=== PATIENT | male | born 1990 | race Caucasian/White ===

== ENCOUNTER 2016-12-17 00:58 | Observation (INO) | payer OTHER ==
[2016-12-17] MEDS: LORazepam 2 MG/ML MDV IVPUSH PRN ×2 (01:15→02:14)
[2016-12-17] MEDS ORDERED: LORazepam 2 MG/ML MDV ONE ×5 (01:15→05:24)
--- NOTE | 2016-12-17 01:15 | EDM.PDOC ---
ED HPI GENERAL MEDICAL PROBLEM - General Chief Complaint: Drug or Alcohol Abuse Stated Complaint: SUICIDAL Time Seen by Provider: 12/17/16 01:11 - History of Present Illness INITIAL COMMENTS - FREE TEXT/NARRATIVE: He has been drinking alcohol today. He denies illegal drug use. Police brought him here because he said something about killing himself. There was no suspected trauma He was noted to be walking about outside today. - Related Data Allergies Allergy/AdvReac Type Severity Reaction Status Date / Time No Known Allergies Allergy Verified 12/17/16 01:08 Home Meds: Home Meds . 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 ED ROS GENERAL - Review of Systems Review Of Systems: See Below - Physical Exam Exam: See Below Text/Narrative:: some agitation; intermittently cooperative; periodic cursing and restlessness. head atraumatic neck supple lungs CTA abdomen non tender no ankle edema periodic yelling and cursing. General Appearance: Alert Course - Vital Signs Last Recorded V/S: Last Vital Signs Temp 98.6 F 12/17/16 12:00 Pulse 101 H 12/17/16 02:27 Resp 16 12/17/16 12:00 BP 118/74 12/17/16 12:00 Pulse Ox 97 12/17/16 12:00 - Orders/Labs/Meds Labs: Laboratory Tests 12/17/16 12/17/16 12/17/16 Range/Units 01:10 01:10 01:25 WBC 7.30 (4.0-11.0) K/uL RBC 4.68 (4.50-5.90) M/uL Hgb 14.9 (13.0-17.0) g/dL Hct 43.3 (38.0-50.0) % MCV 92.5 (80.0-98.0) fL MCH 31.8 (27.0-32.0) pg MCHC 34.4 (31.0-37.0) g/dL RDW Std Deviation 40.9 (28.0-62.0) fl RDW Coeff of Sheree 12 (11.0-15.0) % Plt Count 274 (150-400) K/uL MPV 10.00 (7.40-12.00) fL Neut % (Auto) 58.6 (48.0-80.0) % Lymph % (Auto) 33.2 (16.0-40.0) % Nelson % (Auto) 6.8 (0.0-15.0) % Eos % (Auto) 1.0 (0.0-7.0) % Baso % (Auto) 0.4 (0.0-1.5) % Neut # (Auto) 4.3 (1.4-5.7) K/uL Lymph # (Auto) 2.4 (0.6-2.4) K/uL Nelson # (Auto) 0.5 (0.0-0.8) K/uL Eos # (Auto) 0.1 (0.0-0.7) K/uL Baso # (Auto) 0.0 (0.0-0.1) K/uL Sodium 145 (136-146) mmol/L Potassium 3.1 L (3.5-5.1) mmol/L Chloride 112 H (98-110) mmol/L Carbon Dioxide 13 L (21-31) mmol/L BUN 9 (6.0-23.0) mg/dL Creatinine 1.2 (0.6-1.5) mg/dL Est Cr Clr Drug Dosing TNP Estimated GFR (MDRD) > 60.0 ml/min Glucose 132 H (60-110) mg/dL Calcium 9.8 (8.8-10.8) mg/dL Magnesium 2.0 (1.5-2.3) mEq/L Total Bilirubin 0.3 (0.1-1.5) mg/dL AST 25 (5-40) IU/L ALT 22 (8-54) IU/L Alkaline Phosphatase 75 (40-150) Total Protein 7.8 (6.0-8.0) g/dL Albumin 4.6 (3.5-5.0) g/dL Globulin 3.2 (2.0-3.5) g/dL Albumin/Globulin Ratio 1.4 (1.3-2.8) TSH 3rd Generation 1.52 (0.47-5.0) uIU/mL Urine Opiates Screen NEGATIVE (NEGATIVE) Ur Oxycodone Screen NEGATIVE (NEGATIVE) Urine Methadone Screen NEGATIVE (NEGATIVE) Ur Barbiturates Screen NEGATIVE (NEGATIVE) Ur Phencyclidine Scrn NEGATIVE (NEGATIVE) Ur Amphetamine Screen NEGATIVE (NEGATIVE) U Methamphetamines Scrn NEGATIVE (NEGATIVE) U Benzodiazepines Scrn NEGATIVE (NEGATIVE) U Cocaine Metab Screen NEGATIVE (NEGATIVE) U Marijuana (THC) Screen NEGATIVE (NEGATIVE) Ethyl Alcohol 280.3 mg/dL Meds: Medications Discontinued Medications Generic Name Dose Route Start Last Admin Trade Name Freq PRN Reason Stop Dose Admin Haloperidol Lactate 5 mg 12/17/16 01:42 12/17/16 01:50 Haldol IM 12/17/16 01:43 5 mg ONETIME ONE Administration Multivitamins/Minerals 10 ml/ 1,011.2 mls @ 250 mls/hr 12/17/16 01:16 01:29 Thiamine HCl 100 mg/ Folic IV 12/17/16 05:18 250 mls/hr Acid 1 mg/ Sodium Chloride ONETIME ONE Administration Potassium Chloride/Sodium Chloride 1,000 mls @ 125 mls/hr 12/17/16 09:30 07:15 Normal Saline With 20 Meq Kcl IV 125 mls/hr ASDIRECTED ROSALINE Administration Lorazepam Confirm 12/17/16 01:15 12/17/16 01:21 Ativan Administered 12/17/16 01:16 Not Given Dose 2 mg .ROUTE .STK-MED ONE Lorazepam 1 mg 12/17/16 01:17 12/17/16 02:14 Ativan IVPUSH 1 mg Q1H PRN Administration Anxiety Lorazepam Confirm 12/17/16 02:10 12/17/16 02:15 Ativan Administered 12/17/16 02:11 Not Given Dose 2 mg .ROUTE .STK-MED ONE Lorazepam Confirm 12/17/16 03:21 12/17/16 11:24 Ativan Administered 12/17/16 03:22 Not Given Dose 2 mg .ROUTE .STK-MED ONE Lorazepam Confirm 12/17/16 04:44 12/17/16 11:25 Ativan Administered 12/17/16 04:45 Not Given Dose 2 mg .ROUTE .STK-MED ONE Lorazepam Confirm 12/17/16 05:24 12/17/16 11:25 Ativan Administered 12/17/16 05:25 Not Given Dose 2 mg .ROUTE .STK-MED ONE Lorazepam 1 mg 12/17/16 09:56 Ativan IVPUSH Q1H PRN Agitation Ondansetron HCl 4 mg 12/17/16 09:57 Zofran IVPUSH Q4H PRN Nausea/Vomiting Pantoprazole Sodium Confirm 12/17/16 03:48 12/17/16 11:25 Protonix Iv Administered 12/17/16 03:49 Not Given Dose 40 mg .ROUTE .STK-MED ONE Departure - Departure Time of Disposition: 07:00 Disposition: Admitted As Inpatient 66 Condition: Poor Clinical Impression: Alcohol intoxication - Discharge Information
[2016-12-17] MEDS ORDERED: MVI, Adult with Vitamin K 10 ML, Thiamine 100 MG, Folic Acid 1 MG in Sodium Chloride 0.... IV ONE ×4 (01:16)
[2016-12-17] MEDS ORDERED: Haloperidol Lactate 5 MG/ML SDV IM ONE (01:42)
[2016-12-17 01:49] LABS: CHLORIDE,CL 112 mmol/L (98-110); SODIUM,NA 145 mmol/L (136-146)
[2016-12-17] MEDS ORDERED: Pantoprazole 40 MG Vial ONE (03:48)
[2016-12-17] MEDS ORDERED: NS + KCl 20mEq/L 1,000 ML IV SCH (09:30)
[2016-12-17 09:47] LABS: CHLORIDE,CL 115 mmol/L (98-110); SODIUM,NA 147 mmol/L (136-146)
[2016-12-17] MEDS ORDERED: LORazepam 2 MG/ML MDV IVPUSH PRN (09:56)
[2016-12-17] MEDS ORDERED: Ondansetron 4 MG/2 ML SDV IVPUSH PRN (09:57)
--- NOTE | 2016-12-17 12:01 | PCM.HP ---
H&P History of Present Illness - General Date of Service: 12/17/16 Admit Problem/Dx: Admission Diagnosis/Problem Admission Diagnosis/Problem Alcohol intoxication Source of Information: Police - History of Present Illness Initial Comments - Free Text/Narative: 6-year-old male brought in by police after being intoxicated and being belligerent. Patient is currently sedated and is unable to give a history. Per police patient was restrained by coworkers when he was trying to drink and drive police then came and took custody of the patient the patient was belligerent obviously intoxicated. In the EMS he was fighting the EMS crew. Patient was brought into the ER where he was given a dose of Haldol and Ativan. Patient has received 4 doses of Ativan while inpatient. Patient made remarks in regards to hurting himself. Patient currently in restraints. - Related Data Allergies/Adverse Reactions: Allergies Allergy/AdvReac Type Severity Reaction Status Date / Time No Known Allergies Allergy Verified 12/17/16 01:08 Home Medications: Home Meds . 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 Social & Family History - Family History Family Medical History: Unobtainable - Tobacco Use Smoking Status *Q: Current Status Unknown H&P Review of Systems - Review of Systems: Review Of Systems: Unable To Obtain Exam - Exam Exam: See Below - Vital Signs Vital Signs: Last Vital Signs Temp 36.8 C 12/17/16 07:34 Pulse 101 H 12/17/16 02:27 Resp 10 L 12/17/16 10:09 BP 104/58 L 12/17/16 10:09 Pulse Ox 96 12/17/16 10:09 Weight: 72.6 kg - Exam General: Sedated Neck: Supple Lungs: Clear to Auscultation, Normal Respiratory Effort Cardiovascular: Regular Rate, Regular Rhythm GI/Abdominal Exam: Soft, Non-Tender Back Exam: Normal Inspection, Full Range of Motion Extremities: Normal Inspection, Normal Range of Motion - Patient Data Lab Results Last 24 hrs: Laboratory Results - last 24 hr 12/17/16 12/17/16 Range/Units 08:00 08:00 WBC 8.90 (4.0-11.0) K/uL RBC 4.30 L (4.50-5.90) M/uL Hgb 13.4 (13.0-17.0) g/dL Hct 39.2 (38.0-50.0) % MCV 91.2 (80.0-98.0) fL MCH 31.2 (27.0-32.0) pg MCHC 34.2 (31.0-37.0) g/dL RDW Std Deviation 43.3 (28.0-62.0) fl RDW Coeff of Sheree 13 (11.0-15.0) % Plt Count 237 (150-400) K/uL MPV 9.90 (7.40-12.00) fL Neut % (Auto) 71.6 (48.0-80.0) % Lymph % (Auto) 18.1 (16.0-40.0) % Towner % (Auto) 9.9 (0.0-15.0) % Eos % (Auto) 0.2 (0.0-7.0) % Baso % (Auto) 0.2 (0.0-1.5) % Neut # (Auto) 6.4 H (1.4-5.7) K/uL Lymph # (Auto) 1.6 (0.6-2.4) K/uL Towner # (Auto) 0.9 H (0.0-0.8) K/uL Eos # (Auto) 0.0 (0.0-0.7) K/uL Baso # (Auto) 0.0 (0.0-0.1) K/uL Nucleated RBC % 0.0 /100WBC Nucleated RBCs # 0 K/uL Sodium 147 H (136-146) mmol/L Potassium 3.4 L (3.5-5.1) mmol/L Chloride 115 H (98-110) mmol/L Carbon Dioxide 21 (21-31) mmol/L BUN 6 (6.0-23.0) mg/dL Creatinine 0.9 (0.6-1.5) mg/dL Est Cr Clr Drug Dosing TNP Estimated GFR (MDRD) > 60.0 ml/min Glucose 113 H (60-110) mg/dL Calcium 8.2 L (8.8-10.8) mg/dL Total Bilirubin 0.3 (0.1-1.5) mg/dL AST 31 (5-40) IU/L ALT 20 (8-54) IU/L Alkaline Phosphatase 66 (40-150) Total Protein 6.6 (6.0-8.0) g/dL Albumin 4.0 (3.5-5.0) g/dL Globulin 2.6 (2.0-3.5) g/dL Albumin/Globulin Ratio 1.5 (1.3-2.8) Ethyl Alcohol 144.2 mg/dL Result Diagrams: 12/17/16 08:00 12/17/16 08:00 *Q Meaningful Use (ADM) - VTE *Q VTE Criteria *Q: - Stroke *Q Stroke Criteria *Q: - AMI *Q AMI Criteria *Q: Problem List Initiated/Reviewed/Updated: Yes Orders Last 24hrs: Active Orders 24 hr Category Date Time Status Patient Status [ADT] Routine ADT 12/17/16 07:00 Active Regular Diet [DIET] Diet 12/17/16 Lunch Active LORazepam [Ativan] Med 12/17/16 09:56 Active 1 mg IVPUSH Q1H PRN NS + KCl 20mEq/L [Normal Saline with 20 mEq KCl] 1,000 Med 12/17/16 09:30 Active ml IV ASDIRECTED Ondansetron [Zofran] Med 12/17/16 09:57 Active 4 mg IVPUSH Q4H PRN Restraint Eval Need to Continue - 24 Hrs [OM.PC] Q4H Oth 12/17/16 09:50 Ordered Restraint Eval Need to Continue - 24 Hrs [OM.PC] Q4H Oth 12/17/16 13:50 Ordered Restraint/S VIOL/SD Initiate 18 - Older [OM.PC] Stat Oth 12/17/16 07:00 Ordered Restraint/Seclusion Monitoring VIOL/SD [OM.PC] Stat Oth 12/17/16 07:00 Ordered Medication Orders Potassium Chloride/Sodium Chloride (Normal Saline With 20 Meq Kcl) 1,000 mls @ 125 mls/hr IV ASDIRECTED ROSALINE Last Admin: 12/17/16 07:15 Dose: 125 mls/hr Lorazepam (Ativan) 1 mg IVPUSH Q1H PRN PRN Reason: Anxiety Last Admin: 12/17/16 02:14 Dose: 1 mg Admin: 12/17/16 01:15 Dose: 1 mg Lorazepam (Ativan) 1 mg IVPUSH Q1H PRN PRN Reason: Agitation Ondansetron HCl (Zofran) 4 mg IVPUSH Q4H PRN PRN Reason: Nausea/Vomiting Assessment/Plan Comment:: assessment and plan: This is a 26-year-old male who was brought in secondary to acute alcohol intoxication with a blood alcohol level of 280. Patient does not have any other toxins. Urine tox screen. Patient is belligerent and acting out. -Patient has received 1 dose of Haldol, 3 doses of Ativan for sedation. -Plan is to allow the patient's acute intoxication to cease, patient to awaken, once patient's vital signs are stable and he is medically cleared he will be discharged to the police who are planning to have the patient Court committed to my now for psychiatric evaluation. Patient under observation status less than 2 midnights Discharge Summary Date of admission: 12/17/2016 Date of discharge: 12/17/2016 Admitting diagnosis: #1. acute alcohol intoxication with belligerence #2. suicidal ideation per correction officers #3. blood alcohol level of 280 #4. #5. Discharge diagnoses: #1. acute alcohol intoxication now resolved #2. patient denying suicidal ideation #3. patient discharged to correctional officers who will proceed with court commitment #4. #5. Consultations: None Procedures: None Hospitalization course: 26-year-old male who was admitted overnight secondary to acute alcohol intoxication. Patient was violent and belligerent with staff as such he was put on restraints while in the ICU and given a total of 4 doses of 1 mg Ativan for sedation/agitation. Patient received 5 mg one-time dose of Haldol while in the ED. She was sedated throughout the night and by afternoon his intoxication and worn off his sedation level had ceased and he was able to ambulate without difficulty he was denying suicidal ideation. Patient was deemed stable as well as signs were stable, his electrolytes were within normal limits, his CBC was normal. Patient was then subsequently discharged into the custody of correctional officers. Disposition on discharge:discharge into custody of correctional officers Condition on discharge: stable, no longer sedated, no longer intoxicated Discharge medications: resume home medications
[2016-12-17 14:09] VITALS: BP 118/74
== END 2016-12-17 12:50 ==
LOC: EDBD 00:58 → MW.ED 00:58 → MW.ICU 07:30
PROVIDERS: ADMIT Family Medicine; ATTEND Family Medicine
DX: F10.129 Alcohol abuse with intoxication, unspecified (principal); R45.851 Suicidal ideations; Y90.8 Blood alcohol level of 240 mg/100 ml or more
CPT/HCPCS: 80053; 80305; 83735; 84443; 85025; 96361; 96365; 96366; 96367; 96372; 96375; 96376; 99285; G0378; G0480; J1630; J2060; J3411; J3480; J7040; 99283